=== PATIENT | male | born 1985 | race Caucasian/White ===

== ENCOUNTER 2017-01-14 23:30 | Emergency (ER) | payer OTHER ==
[~2017-01-14] VITALS: Ht 188 cm; Wt 146.5 kg
[2017-01-14 23:39] VITALS: BP 180/84; PULSE 88; TEMP 37.1; O2SAT 96; Ht 188 cm; Wt 146.5 kg
--- NOTE | 2017-01-14 23:47 | EMERGENCY ROOM VISIT NOTE ---
History Report prepared by Adelfo: Omero Higgins Under the Supervision of: Dr. Henrry Gardiner D.O. First contact with patient: 23:42 Chief Complaint: BITE Stated Complaint: POSSIBLE TICK ON CROWN OF HEAD History of Present Illness The patient is a 31 year old male who presents to the Emergency Room with complaints of a sudden possible tick bite on the crown of his head beginning just prior to arrival. He states he scratched his head and noticed dried blood. The patient notes his friend looked and thought there may be a tick. 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 The patient does not have any other medical concerns at this time. Source of History: patient Onset: just prior to arrival Position: head (crown) Quality: other (possible tick bite) Timing: other (sudden) Review of Systems See HPI for pertinent positives & negatives. A total of 10 systems reviewed and were otherwise negative. Past Medical & Surgical Medical Problems: (1) No pertinent past medical history Family History Patient reports no known family medical history. 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 GENERAL: Non-toxic in appearance. INTEGUMENTARY: Warm, dry, and [place]. HEAD: Normocephalic. Scalp has a small abrasion about 1 cm in diameter with some dried blood in the vicinity. No evidence of foreign body or tick. EYES: without scleral icterus or trauma. ENT/OROPHARYNX: clear and moist. LYMPHADENOPATHY/NECK: Is supple without lymphadenopathy or meningismus. RESPIRATORY: Lungs clear and equal. CARDIOVASCULAR: Regular rate and rhythm. GI/ABDOMEN: Soft and nontender. No organomegaly or pulsatile mass. No rebound or guarding. Normal bowel sounds. EXTREMITIES: Warm and well perfused. BACK: No CVA tenderness. NEUROLOGICAL: Intact without focal deficits. PSYCHIATRIC: normal affect. MUSCULOSKELETAL: Normally developed with good muscle tone. Medical Decision & Procedures ED Course 1144: Previous medical records were reviewed. The patient was evaluated in room C11B. A complete history and physical examination was performed. 1147: On reevaluation, the patient is doing well. I discussed the results and findings with the patient. He verbalized agreement of the treatment plan. The patient was discharged home. Medical Decision This is a 31-year-old male who was concerned about having it taken the top of his head. The patient states that he thinks he scratched the area and felt something there and felt like it might have been a tick. His friend looked and thought that he saw something black. On my exam the patient has some dried blood in the area. There is no evidence of a tick. There is a small area of the skin that appears to have been scratched and was likely bleeding slightly. This contributed to the dried blood that may been mistaken for tick. There is no evidence of attack. The patient is felt to be stable for discharge. Impression Primary Impression: Scalp abrasion Scribe Attestation The scribe's documentation has been prepared under my direction and personally reviewed by me in its entirety. I confirm that the note above accurately reflects all work, treatment, procedures, and medical decision making performed by me. Departure Information Dispostion Home / Self-Care Referrals No Doctor, Assigned (PCP) Forms HOME CARE DOCUMENTATION FORM, IMPORTANT VISIT INFORMATION Patient Instructions My [facility] Additional Instructions Follow-up as needed. Return for any concerns.
== END 2017-01-14 23:52 | disposition home or self-care (01) ==
LOC: C.EDB 23:31 → C.EDC 23:52
DX: S00.01XA Abrasion of scalp, initial encounter (principal); X58.XXXA Exposure to other specified factors, initial encounter